=== PATIENT | female | born 1995 | race Caucasian/White ===

== ENCOUNTER 2020-06-07 08:44 | Outpatient (CLI) | payer BC, SELFPAY ==
--- NOTE | ~2020-06-07 | CT_ITS ---
EXAMINATION: CT abdomen pelvis wo con DATE: 06/07/2020 09:01 INDICATION: Right flank pain TECHNIQUE: Computed tomography (CT) of the abdomen and pelvis was performed without intravenous contr ast. Automated exposure control and iterative reconstruction technique were employed. Exam dose: 256 .89 mGy-cm total exam DLP. COMPARISON: None. FINDINGS: The lung bases are clear. Normal heart size. No pericardial or pleural effusion. The liver, gallbladder, bile ducts, pancreas, pancreatic duct and spleen are unremarkable. Normal morphology of the adrenal glands. There are several nonobstructing right renal calculi, the largest approximately 3 mm. There are a cou ple of pinpoint nonobstructing left renal calculi. No ureteral calculus or hydroureteronephrosis. Normal caliber of the abdominal aorta. No intraperitoneal or retroperitoneal or pelvic mass lesion or adenopathy or ascites. The urinary bladder is evacuated. The uterus and adnexal areas are unremarkable. Normal appendix. No bowel obstruction, bowel wall thickening, pneumatosis or intraperitoneal free air . IMPRESSION: Occasional bilateral nonobstructing small renal calculi; no ureteral calculus or hydrour eteronephrosis is demonstrated Reviewed, dictated and finalized at [facility]. Reviewed, dictated and finalized at location [facility]. [employer] IMPRESSION: Occasional bilateral nonobstructing small renal calculi; no ureter al calculus or hydroureteronephrosis is demonstrated
--- NOTE | ~2020-06-07 | XR_ITS ---
EXAMINATION: XR abdomen/kub 1V EXAM DATE: 06/07/2020 09:01 INDICATION: Right flank pain. TECHNIQUE: Frontal projection of the upper abdomen, frontal projection lower abdomen/pelvis for inter pretation. Correlation is made to CT earlier same date. FINDINGS: There is expected amount of colonic stool and gas. No small bowel dilation, nonobstructiv e bowel gas pattern. There are no suspicious calcifications identified. There is no organomegaly suspected. The bones are unremarkable. There is no free intraperitoneal air. The lung bases are clear. IMPRESSION: Cannot identify punctate calyceal calcifications seen on CT. Reviewed, dictated and finalized at location [facility]. 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
== END 2020-06-07 08:45 ==
PROVIDERS: PCP Family Medicine; Visit Provider Urology
DX: R10.9 Unspecified abdominal pain (principal); N20.0 Calculus of kidney
CPT/HCPCS: 74018; 74176

== ENCOUNTER 2021-07-27 10:15 | Outpatient (CLI) | payer BC, SELFPAY ==
--- NOTE | 2021-07-31 16:16 | WPDHOLTEREM ---
Holter/Event Monitor Holter/Event Monitor Date of procedure: 07/27/21 Holter/Event Procedure: 24 Hr Holter Monitor Indications: Palpitations Conclusion: 1. 24 hour holter monitor on 07/27/21. 2. Underlying rhythm is sinus rhythm with sinus arrhythmia. HR range 52-135 bpm; average HR 84 bpm. 3. No premature supraventricular complexes. No supraventricular tachycardia. 4. No premature ventricular complexes. No ventricular tachycardia. 5. No sinoatrial or atrioventricular blocks. No significant pauses greater than 2 seconds. 6. No symptoms available for correlation.
== END 2021-07-27 10:16 | disposition home or self-care (01) ==
LOC: ANHCARD 10:18
PROVIDERS: PCP Family Medicine
DX: R00.2 Palpitations (principal)
CPT/HCPCS: 93225; 93226

== ENCOUNTER 2021-07-30 14:27 | Emergency (ER) | payer BC, SELFPAY ==
[2021-07-30 14:35] VITALS: BP 123/63; PULSE 101; RESP 16; TEMP 36.6; O2SAT 100
--- NOTE | 2021-07-30 14:42 | ED.SKABFB ---
HPI - Skin/Abscess/Foreign Bdy General Chief complaint: Skin/Abscess/Foreign Body Stated complaint: Rash Time Seen by Provider: 07/30/21 14:42 Source: patient Mode of arrival: ambulatory Limitations: no limitations History of Present Illness HPI narrative: 26-year-old female presents with rash to abdomen and back that started several days ago and has slowly spread up towards neck and upper arms. Reports itchy only if she is touching it or scratching it. Denies use of any new products. Does have sensitive skin. Denies pain, denies fever. All systems reviewed and negative except as noted above. Related Data Allergies Allergy/AdvReac Type Severity Reaction Status Date / Time pineapple Allergy Severe TONGUE Verified 07/30/21 14:34 SWELLING Review of Systems Review of Systems: CONSTITUTIONAL: Denies fever, chills, or sweats. EYES: Denies visual changes, redness, or discharge. ENT: Denies rhinorrhea, congestion, sore throat, or otalgia. CARDIOVASCULAR: Denies chest pain, palpitations, or edema. RESPIRATORY: Denies cough or dyspnea. GASTROINTESTINAL: Denies abdominal pain, nausea, vomiting, or diarrhea. GENITOURINARY: Denies dysuria or hematuria. SKIN: Reports rash with mild itching. MUSCULOSKELETAL: Denies back pain, joint pain, or myalgia. NEUROLOGIC: Denies headache, numbness, or weakness. PSYCHIATRIC: Denies anxiety or depression. All other systems reviewed are negative, except as documented in HPI. PMFSH Comments At time of signature, agree with nursing past medical, surgical, social and family history. There is no relevant family history pertinent to the presenting complaint. Exam Narrative: GENERAL: This is a well-nourished, well-developed patient, in no apparent distress. HEAD: normocephalic, atraumatic. EYES: PERRL. Sclera clear/white. Vision is grossly intact. EARS: External ears normal NOSE: External nose normal THROAT: Mucous membranes moist NECK: Neck supple, non-tender without lymphadenopathy, masses or thyromegaly. CARDIOVASCULAR: Regular rate and rhythm without murmurs, gallops, or rubs. RESPIRATORY: Clear to auscultation. Breath sounds equal bilaterally. No wheezes, rales, or rhonchi. SKIN: warm, Dry, intact, good texture and turgor. Erythematous papular rash to trunk, neck and upper aspect of arms with some scaling to the center. Rash spares face and legs. There is a herald patch to the right hip. NEURO: awake, alert, and oriented to person, place and time. There were no obvious focal neurologic abnormalities. EXTREMITIES: Normal range of motion to all extremities. Course Course Level of Care: Express Care Visit Vital Signs Vital signs: Vital Signs Temperature 36.6 C 07/30/21 14:35 Pulse Rate 101 H 07/30/21 14:35 Respiratory Rate 16 07/30/21 14:35 Blood Pressure 123/63 07/30/21 14:35 Pulse Oximetry 100 07/30/21 14:35 Temperature 36.6 C 07/30/21 14:35 Pulse Rate 101 H 07/30/21 14:35 Respiratory Rate 16 07/30/21 14:35 Blood Pressure 123/63 07/30/21 14:35 Pulse Oximetry 100 07/30/21 14:35 Reviewed MDM - Skin/Abscess/Foreign Bdy MDM Narrative Medical decision making narrative: Patient is aware of diagnosis, understands and agrees to treatment plan. Anticipatory guidance given. Patient agrees to follow-up as directed and is aware of reasons to seek care at the emergency department. Portions of this record may have been created with voice recognition software Differential Diagnosis Differential diagnosis: Likely urticaria, eczema, insect bites and contact dermatitis Discharge Plan Discharge Clinical Impression: Pityriasis rosea Patient Disposition: Home, Self-Care Condition: Stable Instructions: Pityriasis rosea (ED) Additional Instructions: Use medications as prescribed. Rash may last several weeks to several months. Follow-up with medical/surgery registered nurse if not improving or for any further concerns. Prescriptions: New hydrocortisone 2.5 % c
== END 2021-07-30 14:54 | disposition home or self-care (01) ==
PROVIDERS: Emergency Provider Nurse Practitioner Family; PCP Family Medicine
DX: L42 Pityriasis rosea (principal)
CPT/HCPCS: 99213; G0463

== ENCOUNTER 2021-11-26 11:02 | Emergency (ER) | payer BC, SELFPAY ==
[2021-11-26 11:22] VITALS: BP 112/60; PULSE 92; RESP 18; TEMP 36.8; O2SAT 100
--- NOTE | 2021-11-26 13:04 | ED.GENADULT ---
HPI - General Adult General Chief complaint: Urogenital-Female Stated complaint: uti complaint History of Present Illness HPI narrative: 26 y/o female. PMHx Non contributory. Presents to Express Care today with acute complaints of urinary frequency and dysuria, present for the past 5 days. No fevers. Denies abdominal pain, pelvic pain, vaginal discharge. No flank pain, hematuria, N/V. Related Data Allergies Allergy/AdvReac Type Severity Reaction Status Date / Time pineapple Allergy Severe TONGUE Verified 11/26/21 11:59 SWELLING Review of Systems Review of Systems: CONSTITUTIONAL: Denies fever, chills, sweats. EYES: Denies visual changes, redness, discharge. ENT: Denies rhinorrhea, congestion, sore throat, otalgia. CARDIOVASCULAR: Denies chest pain, palpitations, edema. RESPIRATORY: Denies dyspnea, wheezing, cough GASTROINTESTINAL: Denies abdominal pain, nausea, vomiting, diarrhea. GENITOURINARY: Positive dysuria, frequency. No hematuria, abnormal discharge SKIN: Denies rash or itching. MUSCULOSKELETAL: Denies acute back pain, joint pain, or myalgia. NEUROLOGIC: Denies numbness, or focal weakness. PSYCHIATRIC: Denies anxiety or depression. Exam Narrative: GENERAL: This is a well-nourished, well-developed adult, in no apparent distress. HEAD: normocephalic EARS: External ears normal NOSE: External nose normal. THROAT: Mucous membranes moist NECK: Neck supple CARDIOVASCULAR: Regular rate and rhythm without murmurs, gallops, or rubs. RESPIRATORY: Clear to auscultation. Breath sounds equal bilaterally. No wheezes, rales, or rhonchi. GASTROINTESTINAL: Abdomen soft, non-tender, nondistended. Bowel sounds are active. No guarding. No CVA tenderness. SKIN: warm, intact with no suspicious lesions or rash, good texture and turgor. NEURO: Alert, active, and age appropriate. No focal neurologic deficits. EXTREMITIES: Negative. Course Course Level of Care: Express Care Visit Vital Signs Vital signs: Vital Signs Temperature 36.8 C 11/26/21 11:22 Pulse Rate 92 11/26/21 11:22 Respiratory Rate 18 11/26/21 11:22 Blood Pressure 112/60 11/26/21 11:22 Pulse Oximetry 100 11/26/21 11:22 Oxygen Delivery Room Air 11/26/21 11:22 Temperature 36.8 C 11/26/21 11:22 Pulse Rate 92 11/26/21 11:22 Respiratory Rate 18 11/26/21 11:22 Blood Pressure 112/60 11/26/21 11:22 Pulse Oximetry 100 11/26/21 11:22 Oxygen Delivery Room Air 11/26/21 11:22 Medical Decision Making Differential Diagnosis Differential Diagnosis: Differential Diagnosis: Consideration of the following conditions may be warranted for the presenting problem, they are not final diagnoses: Likely UTI, Cystitis, Nephrolithiasis, bacterial vaginosis, Nephritis, candidiasis, vaginitis, pyelonephritis, Venereal Disease, or other. Vital Signs Vital Signs: Vital Signs Temperature 36.8 C 11/26/21 11:22 Pulse Rate 92 11/26/21 11:22 Respiratory Rate 18 11/26/21 11:22 Blood Pressure 112/60 11/26/21 11:22 Pulse Oximetry 100 11/26/21 11:22 Oxygen Delivery Room Air 11/26/21 11:22 Temperature 36.8 C 11/26/21 11:22 Pulse Rate 92 11/26/21 11:22 Respiratory Rate 18 11/26/21 11:22 Blood Pressure 112/60 11/26/21 11:22 Pulse Oximetry 100 11/26/21 11:22 Oxygen Delivery Room Air 11/26/21 11:22 Lab Data Labs: Urine Glucose Negative Reference Range: Negative Urine Bilirubin Negative Reference Range: Negative Urine Ketone Negative Reference Range: Negative Urine Specific [place] 1.020 Reference Range:1.001-1.035 Urine Blood Negative Referen
== END 2021-11-26 12:00 | disposition home or self-care (01) ==
PROVIDERS: Emergency Provider Nurse Practitioner Adult Health; PCP Family Medicine
DX: N39.0 Urinary tract infection, site not specified (principal)
CPT/HCPCS: 81003; 87077; 87086; 87186; 99213; G0463

== ENCOUNTER 2022-10-05 11:05 | Outpatient (CLI) | payer BC, SELFPAY ==
--- NOTE | ~2022-10-05 | XR_ITS ---
Clinical Indication: Cough PA and lateral views of the chest: Comparison: None Findings: The lungs are clear, without evidence of focal consolidation or pleural effusion. Cardiome diastinal silhouette is within normal limits. Bones and soft tissues are unremarkable. Impression: Normal chest. Reviewed, dictated and finalized at location . Impression: Normal chest.
== END 2022-10-05 11:06 ==
LOC: MICIMG 11:06
PROVIDERS: PCP Family Medicine; Visit Provider Family Medicine
DX: R05.3 Chronic cough (principal)
CPT/HCPCS: 71046

== ENCOUNTER 2022-11-05 08:01 | Outpatient (CLI) | payer BC, SELFPAY ==
--- NOTE | 2022-11-05 15:10 | WPDPFTINT ---
PFT Procedure Performed PFT Procedure Performed Spirometry with Pre/Post Bronchodilator Plethysmography (Lung Vol) Diffusing Cap (DLCO) Flow Vol Loop PFT Interpretation This is a pulmonary function test with pre and post-bronchodilator spirometry, plethysmography and diffusing capacity. The test was performed and results interpreted in accordance with the 2019 and 2005 ATS/ERS Task Force guidelines respectively using the Global Lung Function Initiative-2012 reference equations. Patient demonstrated good effort and cooperation. Reproducibility criteria were met. The quality of the pre bronchodilator spirometry maneuver was Grade A and post bronchodilator spirometry maneuver was Grade A. Findings: Spirometry: The contour the inspiratory and expiratory flow tracing are normal. The pre bronchodilator FVC is 3.62 L, 120% predicted. The pre bronchodilator FEV1 is 3.04 L, 116% predicted. The pre bronchodilator FEV1: FVC ratio was 84%. The post bronchodilator FVC is 3.82 L, representing a 5% increase. The post bronchodilator FEV1 is 3.31 L, representing a 9% increase. The post bronchodilator FEV1: FVC ratio was 87%. Plethysmography: The total lung capacity is 4.67 L, 112% predicted. The functional residual capacity is 2.35 L, 108% predicted. The residual volume is 1.05 L, 96% predicted. Diffusing capacity: The diffusing capacity unadjusted for hemoglobin and carboxyhemoglobin is 24.4, 99% predicted. The diffusing capacity adjusted for alveolar volume is 5.54, 109% predicted. Impression: The spirometry is normal without evidence of an obstructive abnormality. There is no significant improvement after inhaling a single dose of albuterol. The lung volumes are normal. The diffusing capacity is normal. There are no prior studies for comparison
== END 2022-11-05 08:02 | disposition home or self-care (01) ==
PROVIDERS: PCP Family Medicine; Visit Provider Family Medicine
DX: R05.3 Chronic cough (principal)
CPT/HCPCS: 94060; 94726; 94729

== ENCOUNTER 2023-05-25 08:12 | Emergency (ER) | payer BC, SELFPAY ==
--- NOTE | 2023-05-25 08:15 | ED.URI ---
HPI - URI/Sore Throat General Chief Complaint: Upper Respiratory Infection Stated Complaint: cough Source: patient, RN notes reviewed and old records reviewed Mode of arrival: ambulatory Limitations: no limitations History of Present Illness HPI Narrative: 22-year-old female presents to the [facility] with complaints of a productive cough that started over 10 days ago. Also reports sinus congestion, postnasal drainage. Has been trying NyQuil and Mucinex. Denies fevers, chest pain. Onset (ago): day(s) (10+) Treatments prior to arrival: cold medicine Related Data Allergies Allergy/AdvReac Type Severity Reaction Status Date / Time pineapple Allergy Severe TONGUE Verified 05/25/23 08:23 SWELLING Review of Systems Review of Systems: All systems reviewed & are unremarkable except as noted in HPI and below Constitutional: Constitutional: Reports no additional constitutional complaints Eyes: Eyes: Reports no additional eye complaints ENT: Reports as per HPI and Reports nasal congestion Cardiovascular: Cardiovascular: Reports no additional cardiovascular complaints, Denies chest pain and Denies dyspnea Respiratory: Respiratory: Reports as per HPI, Reports chest congestion, Reports cough and Denies dyspnea Gastrointestinal: Gastrointestinal: Reports no additional gastrointestinal complaints, Denies abdominal pain, Denies nausea and Denies vomiting Musculoskeletal: Musculoskeletal: Reports no additional musculoskeletal complaints Integumentary/Breasts: Skin/Breast: Reports system reviewed and no additional complaints, except as docu Neurologic: Reports system reviewed and no additional complaints, except as documented Psychiatric: Psychiatric: Reports no additional psychiatric complaints Allergic/Immunologic: Allergic/Immunologic: Reports no additional allergic/immunologic complaints PMFSH Past Medical History Medical History Nephrolithiasis Right flank pain Urinary tract infection Surgical History Surgical History H/O knee surgery left Family History Family History Grandparent Diabetes mellitus Breast cancer Carcinoma of colon Social History Social History Smoking status: Never smoker Alcohol intake: never Substance use: never Substance use type: does not use Lack of Transportation: No Lack of Food: Never True Current Housing: I Have Housing Concerned About Future Housing: No Difficulty Paying Gas/Electric Bills: No Difficulty Paying for Meds: No Currently Unemployed: No Education: Bachelor's Degree Difficulty w/ Childcare or Family Care: No Living arrangements: with family Occupation/Education: occupation Additional occupation/education comments: RN Gender identity (if verbalized by the patient): Female Sexual Orientation (if Verbalized by the Patient): Straight or Heterosexual Comments At the time of my signature, I reviewed and agree with the nursing past medical, surgical, social, and family history. There is no relevant family history pertinent to the patient complaint. Exam Const: General: cooperative, healthy appearing, comfortable, no acute distress, well developed, alert and well nourished Nutritional Appearance: well nourished Orientation/consciousness: patient oriented x3 Limitations: no limitations HENMT: Head: normal to inspection Ears: hearing grossly normal bilaterally, external ears normal, TM's normal bilaterally, EAC's normal, mastoids normal and no periauricular adenopathy Face/Nose/Sinus: Normal external nose present, Normal nares present, Normal nasal mucous membranes and turbinates present, No nasal discharge present, normal facial exam, sinuses nontender and face symmetric Face and sinus: normal facial exam, sinuses non
[2023-05-25 08:22] VITALS: BP 115/73; PULSE 100; RESP 18; TEMP 36.4; O2SAT 100
== END 2023-05-25 08:35 | disposition home or self-care (01) ==
PROVIDERS: Emergency Provider Nurse Practitioner; PCP Family Medicine
DX: J32.9 Chronic sinusitis, unspecified (principal); J40 Bronchitis, not specified as acute or chronic
CPT/HCPCS: 99213; G0463